=== PATIENT | male | born 1950 | race Caucasian/White ===

== ENCOUNTER 2018-06-04 16:38 | Inpatient (IN) | payer MEDICARE, OTHER ==
[~2018-06-04] VITALS: Ht 180.3 cm; Wt 92.5 kg
[~2018-06-04 16:38] MED LIST: ASPIR 8181 MG PO; CLOPIDOGREL75 MG PO; LEVOTHYROXINE100 MC1 PO; LEXAPRO10 MG PO; LISINOPRIL-HCT1 EAC1 PO; NIACIN500 M2 PO; RED YEAST RICE600 MG PO; TUMERIC PO
--- OUTSIDE RECORDS SUMMARY | 2018-06-04 16:41 | XMS REPORT ---
Author [facility] Address Unknown Phone Unavailable Care Team Providers Care Fur Blower Operator Name Role Phone Bautista MANUEL Unavailable Unavailable Problems This patient has no known problems. Allergies, Adverse Reactions, Alerts This patient has no known allergies or adverse reactions. Medications This patient has no known medications. Results Test Description Test Time Test Comments Text Results Atomic Results Result Comments CHEST 2 VIEWS [place] [address] Patient Name: KENA MARI MR #: [id number] : 1950 Age/Sex: 66/M Req #: [id number] Adm Physician: Ordered by: JAYLA MANUEL MD Report #: [id number] Location: OR Room/Bed: Procedure: [id number] DX/CHEST 2 VIEWS Exam Date: Exam Time: REPORT STATUS: Signed PROCEDURE: Frontal and lateral views of the chest. COMPARISON: None. INDICATIONS: PREOPERATIVE FOR MASS REMOVAL FINDINGS: Lines/tubes: None. Lungs: The lungs are well inflated and clear. There is no evidence of pneumonia or pulmonary edema. Pleura: There is no pleural effusion or pneumothorax. Heart and mediastinum: The heart and the mediastinum are normal. Atherosclerotic calcifications in the aorta. Bones: No acute bony abnormality. IMPRESSION: No acute cardiopulmonary disease. Dictated by: Cristiana Solomon M.D. on 11/09/2016 at 17:48 Electronically approved by: Cristiana Solomno M.D. on 11/09/2016 at 17:48 Dictated By: CRISTIANA SOLOMON MD 47 Transcribed By: FARHAD on 11/09/161747 COPY TO: JAYLA MANUEL MD
[2018-06-04] MEDS ORDERED: SODIUM CHLORIDE 0.9% 1000ML 1,000 ML ONE (17:53)
[2018-06-04 17:59] LABS: CLARITY,URINE SL CLOUDY (CLEAR); COLOR,URINE STRAW (YELLOW); LEUKOCYTE ESTERASE ,URINE NEGATIVE (NEGATIVE); NITRITE,URINE NEGATIVE (NEGATIVE); PROTEIN,URINE DIPSTICK NEGATIVE (NEGATIVE)
[2018-06-04 18:00] LABS: BILIRUBIN,URINE NEGATIVE (NEGATIVE); KETONES,URINE TRACE (NEGATIVE); URINE UROBILINOGEN 0.2 mg/dL (0.2 - 1)
[2018-06-04] MEDS ORDERED: VITAMIN B12-FO1 EACH PO (18:02)
[2018-06-04] MEDS ORDERED: MAGOX 400400 MG PO (18:02)
[2018-06-04] MEDS ORDERED: VITAMIN E400 UNI1 PO (18:02)
[2018-06-04] MEDS ORDERED: VITAMIN D1000 UNI1 PO (18:02)
[2018-06-04] MEDS ORDERED: GUMMI BEAR MUL1 EACH PO (18:02)
[2018-06-04] MEDS ORDERED: SODIUM CHLORIDE 0.9% 1000ML 1,000 ML IV STA (18:05)
[2018-06-04 18:13] LABS: INR 0.91; PROTHROMBIN TIME 12.7 seconds (11.9-14.5)
[2018-06-04 18:14] LABS: PARTIAL THROMBOPLASTIN TIME 24.7 seconds (23.8-35.5)
[2018-06-04 18:17] LABS: BASOPHILS # (AUTO) 0.1 (0.0-0.1); BASOPHILS % 0.5 % (0.0-1.0); EOSINOPHILS % 0.4 % (0.0-6.0); HEMATOCRIT 28.5 % (38.2-49.6); HEMOGLOBIN 9.6 g/dL (14.0-18.0); LYMPHOCYTES # (AUTO) 1.4 (1.0-3.2); LYMPHOCYTES % 12.2 % (18.0-39.1); MEAN CORPUSCULAR HEMOGLOBIN 29.9 pg (28-32); MEAN CORPUSCULAR HGB CONC 33.7 g/dL (31-35); MEAN CORPUSCULAR VOLUME 88.8 fL (81-99); MONOCYTES # (AUTO) 0.9 (0.2-0.8); MONOCYTES % 8.1 % (4.4-11.3); NEUTROPHILS # (AUTO) 8.7 (2.1-6.9); NEUTROPHILS % 78.3 % (38.7-80.0); PLATELET COUNT 216 x10e3/uL (140-360); RED BLOOD COUNT 3.21 x10e6/uL (4.3-5.7); RED CELL DISTRIBUTION WIDTH 12.7 % (11.7-14.4)
[2018-06-04 18:20] LABS: ALANINE AMINOTRANSFERASE 15 IU/L (0-55); ALBUMIN 3.7 g/dL (3.5-5.0); ALBUMIN/GLOBULIN RATIO 1.3 (0.8-2.0); ALKALINE PHOSPHATASE 72 IU/L (40-150); ANION GAP 11.5 mmol/L (8-16); BLOOD UREA NITROGEN 28 mg/dL (7-26); BUN/CREATININE RATIO 32 (6-25); CALCIUM 9.3 mg/dL (8.4-10.2); CARBON DIOXIDE 22 mmol/L (22-29); CHLORIDE 102 mmol/L (98-107); CREATININE, SERUM 0.88 mg/dL (0.72-1.25); EST GLOMERULAR FILTRATION RATE > 60 ML/MIN (60-); GLUCOSE 96 mg/dL (74-118); POTASSIUM 3.5 mmol/L (3.5-5.1); SODIUM 132 mmol/L (136-145)
[2018-06-04 18:31] LABS: BACTERIA,URINE MANY /HPF; WBC,URINE (MAN) 0-5 /HPF (0-5)
[2018-06-04] MEDS ORDERED: SODIUM CHLORIDE 0.9% 250ML 250 ML IV ONE ×2 (19:15→19:30)
--- NOTE | 2018-06-04 19:38 | NUR ---
PT AWAKE ALERT SKIN W/D RESP NONLAB. NAD NOTED. STOOD AT BEDSIDE AND USED URINAL WITHOUT DIFFICULTY. FAMILY AT BEDSIDE
--- NOTE | 2018-06-04 19:41 | Diagnostic Imaging Report ---
EXAM: CT Abdomen and Pelvis WITH contrast INDICATION: ^abd pain, GIB ^[id number] ^1830 COMPARISON: CT dated 01/11/2009 TECHNIQUE: Abdomen and pelvis were scanned utilizing a multidetector helical scanner from the lung base to the pubic symphysis after administration of IV contrast. Coronal and sagittal reformations were obtained. Dose modulation, iterative reconstruction, and/or weight based adjustment of the mA/kV was utilized to reduce the radiation dose to as low as reasonably achievable. Routine protocol was performed. Scan was performed when during portal venous phase. IV CONTRAST: 100 mL of Isovue-370 ORAL CONTRAST: Water COMPLICATIONS: None RADIATION DOSE: Total DLP: 663.36 mGy*cm Estimated effective dose: (DLP x 0.015 x size factor) mSv CTDIvol has been reviewed. It is below the limits set by the Radiation Protocol Committee (RPC). FINDINGS: LINES and TUBES: None. LOWER THORAX: Unremarkable HEPATOBILIARY: No focal hepatic lesions. No biliary ductal dilation. GALLBLADDER: No radio-opaque stones or sludge. No wall thickening. SPLEEN: No splenomegaly. PANCREAS: No focal masses or ductal dilatation. Pancreatic head calcification is more prominent from prior exam (series 2, image 30). ADRENALS: No adrenal nodules. Unchanged thickening of the left adrenal gland. KIDNEYS/URETERS: Kidneys enhance symmetrically. No hydronephrosis. No cystic or solid mass lesions. No stones. GI TRACT: No abnormal distention, wall thickening, or evidence of bowel obstruction. Colonic diverticulosis without evidence of diverticulitis. There is a 1.4 cm fat density lesion adjacent to the descending colon (series 2, image 63). Appendix is normal. PELVIC ORGANS/BLADDER: Prominent prostate gland. Bladder is unremarkable. LYMPH NODES: No lymphadenopathy. VESSELS: Narrowing of the proximal celiac axis. Otherwise, unremarkable. PERITONEUM / RETROPERITONEUM: No free air or fluid. BONES: L2 vertebral body hemangioma. L5-S1 degenerative changes. SOFT TISSUES: Small fat-containing left inguinal hernia. IMPRESSION: Fat density lesion adjacent to the descending colon, could represent Epiploic appendagitis or fat necrosis. Colonic diverticulosis without evidence of diverticulitis. Signed by: Dr. Fabio Harper MD on 06/04/2018 7:38 PM
[2018-06-04] MEDS ORDERED: IOPAMIDOL 370 MG/ML 200 ML INFUS..BTL INJ ONE (19:59)
[2018-06-04] MEDS ORDERED: SODIUM CHLORIDE 0.9% 50ML 50 ML ONE (19:59)
[2018-06-04] MEDS: SODIUM CHLORIDE 0.9% 1000ML 1,000 ML IV SCH (20:45)
[2018-06-04 21:18] VITALS: BP 104/59
--- NOTE | 2018-06-04 21:18 | NUR ---
patient received to room 289 via stretcher from the er. vss. pain to lower abd off and on. pain tolerable at this time per patient. blood continues to transfuse without difficulty. no signs of transfusion reaction noted. admit assessment/history obtained. son at the bedside. patient/son instructed to call for assistance when needed.
[2018-06-04 22:04] VITALS: BP 104/59
--- NOTE | 2018-06-04 23:00 | NUR ---
blood complete. vss. no transfusion reaction noted. patient denies pain at this time.
[2018-06-04 23:48] VITALS: BP 97/64
[2018-06-05 00:06] LABS: HEMATOCRIT 30.3 % (38.2-49.6); HEMOGLOBIN 10.3 g/dL (14.0-18.0)
[2018-06-05] MEDS ORDERED: PANTOPRAZOLE 40 MG 10ML VIAL IV STA (01:14)
[2018-06-05] MEDS: PANTOPRAZOL 40MG/SOD CHL 0.9% 50 ML IV SCH ×4 (01:30→17:13)
--- NOTE | 2018-06-05 01:30 | NUR ---
here to see patient. protonix drip initiated at 10cc/hr per orders. patient remains npo for egd tomorrow. patient made aware of this. consent to be signed in am.
--- NOTE | 2018-06-05 04:30 | NUR ---
Consent obtained from patient for egd today. consent placed on patients chart.
[2018-06-05 04:40] VITALS: BP 98/53
[2018-06-05 08:00] VITALS: BP 95/53
[2018-06-05 08:57] VITALS: BP 95/53
[2018-06-05] MEDS: SODIUM CHLORIDE 0.9% 1000ML 1,000 ML IV SCH ×2 (08:57→16:45)
--- NOTE | 2018-06-05 08:57 | NUR ---
Pt received resting in bed. Alert and oriented x4. Pt is NPO for EGD. Receiving Protonix & normal saline drip. Oriented to staff and surroundings. Encouraged to press call manzano if help needed. Emotional support given. Call manzano within reach. Will monitor
[2018-06-05] MEDS ORDERED: PANTOPRAZOLE 40 MG 10ML VIAL IV SCH (09:00)
[2018-06-05 11:59] LABS: HEMATOCRIT 27.6 % (38.2-49.6); HEMOGLOBIN 9.2 g/dL (14.0-18.0)
[2018-06-05 12:00] VITALS: BP 107/56
[2018-06-05] MEDS ORDERED: PEG (High)/E-LYTE SOLN 4,000 ML BTL PO ONE (16:00)
[2018-06-05 17:45] VITALS: BP 107/53
--- NOTE | 2018-06-05 18:15 | NUR ---
Pt refusing Protonix & NS drip for the moment because he's getting prepped for Colonoscopy. Emotional support given. Will endorse to next shift
[2018-06-05 19:15] LABS: HEMATOCRIT 28.6 % (38.2-49.6); HEMOGLOBIN 9.4 g/dL (14.0-18.0)
--- NOTE | 2018-06-05 19:15 | NUR ---
Patient visited in room during nursing rounds. Pt alert and oriented x4. No distress or discomfort noted. Pt aware scheduled for Colonoscopy tomorrow (06/06/18) by Dr. Norma Hernandez. Patient on bowel prep (golytely). IVF (NS at 100ml/hr) and Protonix drip at 10ml/hr. Call manzano within reach. Will monitor closely.
[2018-06-05] MEDS ORDERED: PROPOFOL IV EMULSION 10 MG/ML 50 ML VIAL ONE (19:29)
[2018-06-05] MEDS ORDERED: LIDOCAINE HCL 2% LOCAL INJ 5 ML SDV VIAL INJ ONE (19:29)
[2018-06-05 19:30] VITALS: BP 140/76
[2018-06-05] MEDS ORDERED: MIDAZOLAM HCL 2 MG/2 ML VIAL ONE (19:48)
[2018-06-05] MEDS ORDERED: FENTANYL CITRATE/PF 100MCG/2 ML INJ ONE (19:48)
--- NOTE | 2018-06-05 23:31 | Operative Report ---
DATE OF PROCEDURE: 06/05/2018 SURGEON: Lasha Hernandez MD PROCEDURE: EGD with biopsies. INDICATIONS FOR EGD: Anemia, history of melena. MEDICATIONS: The patient was done under MAC, please see anesthesiologist's note. PROCEDURE IN DETAIL: With the patient in left lateral decubitus position, a flexible fiberoptic Olympus gastroscope was introduced into the esophagus under direct visualization without any difficulty. There was some patchy erythema noted in distal esophagus. The scope was then advanced with ease into the stomach traversing a small sliding hiatal hernia. Mucosa overlying the antrum and the body revealed some patchy erythema, [id number] edema and biopsies were obtained and sent to stain for H pylori. The pylorus was of normal contour and shape. It was intubated with ease and the scope was advanced all the way to the second portion of the duodenum. The scope was then withdrawn slowly and mucosa overlying the proximal second portion and the duodenal bulb grossly appeared to be within normal limits. The scope was then withdrawn back into the stomach and retroflexed. The mucosa overlying the fundus and cardia appeared to be within normal limits. The scope was then straightened out and was subsequently withdrawn. The patient tolerated procedure well. IMPRESSION: 1. Distal esophagitis. 2. Small sliding hiatal hernia. 3. Gastritis, biopsied. Biopsies sent to stain for Helicobacter pylori. PLAN: Follow up histology. Continue Protonix 40 mg 1 p.o. q.a.m. before meals. Findings on EGD do not necessarily explain the patient's anemia or blood loss. We will proceed with colonoscopy in a.m. Lasha Hernandez MD [facility] [place] /[id number] cc: Mayito Armenta DO
[2018-06-06] VITALS (7 sets, daily range): BP systolic 106–115; BP diastolic 60–77
[2018-06-06 00:18] LABS: HEMATOCRIT 25.4 % (38.2-49.6); HEMOGLOBIN 8.5 g/dL (14.0-18.0)
[2018-06-06] MEDS: SODIUM CHLORIDE 0.9% 1000ML 1,000 ML IV SCH ×2 (00:18→08:17)
[2018-06-06] MEDS: PANTOPRAZOL 40MG/SOD CHL 0.9% 50 ML IV SCH ×4 (00:29→12:32)
--- NOTE | 2018-06-06 06:00 | NUR ---
Patient informed that his last bowel movement showed clear to pink-tinged liquid stool.
[2018-06-06 06:22] LABS: HEMATOCRIT 24.2 % (38.2-49.6); HEMOGLOBIN 8.1 g/dL (14.0-18.0)
[2018-06-06 06:34] LABS: ANION GAP 6.5 mmol/L (8-16); CARBON DIOXIDE 25 mmol/L (22-29); CHLORIDE 112 mmol/L (98-107); CREATININE, SERUM 0.69 mg/dL (0.72-1.25); EST GLOMERULAR FILTRATION RATE > 60 ML/MIN (60-); GLUCOSE 88 mg/dL (74-118); MAGNESIUM 1.7 MG/DL (1.3-2.1); POTASSIUM 3.5 mmol/L (3.5-5.1); SODIUM 140 mmol/L (136-145)
[2018-06-06 06:52] LABS: BLOOD UREA NITROGEN 9 mg/dL (7-26); BUN/CREATININE RATIO 13 (6-25)
--- NOTE | 2018-06-06 08:20 | NUR ---
Pt received resting in bed. Alert and oriented x4, scheduled for Colonoscopy. Emotional support given. Call manzano within reach. Will monitor
[2018-06-06] MEDS: ACETAMINOPHEN 325 MG TAB PO PRN (09:49)
[2018-06-06] MEDS ORDERED: CITRATE OF MAGNESIA 300ML BOTTLE PO NR (10:15)
[2018-06-06 12:30] LABS: HEMATOCRIT 25.3 % (38.2-49.6)
[2018-06-06 12:32] LABS: HEMOGLOBIN 8.4 g/dL (14.0-18.0)
--- NOTE | 2018-06-06 16:39 | Operative Report ---
DATE OF PROCEDURE: 06/06/2018 SURGEON: Lasha Hernandez MD PROCEDURE: Colonoscopy with biopsies and polypectomy. INDICATIONS FOR COLONOSCOPY: Rectal bleeding. MEDICATIONS: The patient was done under MAC, please see anesthesiologist's note. PROCEDURE IN DETAIL: With the patient in left lateral decubitus position, flexible fiberoptic Olympus colonoscope was inserted into the rectum with ease and advanced all the way to the cecum. Approximately 1.2 cm sessile polypoid lesion was noted in the cecum that was biopsied. Biopsies were sent for frozen section, which was positive for intramucosal carcinoma. The scope was then withdrawn slowly. One polyp was snared from the distal ascending colon. The transverse appeared to be within normal limits. Diverticular disease was noted in the distal descending and the sigmoid colon. One polyp was hot biopsied from the rectum. The scope was then retroflexed into the distal rectum and small internal hemorrhoids were noted, none of which was actively bleeding. The scope was then straightened out, it was subsequently withdrawn. The patient tolerated the procedure well. IMPRESSION: 1. Cecal polypoid mass approximately 1.2 cm. Frozen section positive for intramucosal adenocarcinoma. 2. Ascending colon polyp, snared. 3. Diverticulosis. 4. Rectal polyp, hot biopsied. 5. Internal hemorrhoids, none actively bleeding. PLAN: Follow up histology. CT scan of the abdomen and pelvis. General surgical consultation. Lasha Hernandez MD [facility] [place] /[id number] cc: MD Mayito Moss DO
--- NOTE | 2018-06-06 17:00 | NUR ---
Pt returned from Colonoscopy. Emotional support given. Call manzano within reach. Will monitor
[2018-06-06 18:45] LABS: HEMATOCRIT 25.3 % (38.2-49.6); HEMOGLOBIN 8.1 g/dL (14.0-18.0)
[2018-06-06] MEDS ORDERED: FENTANYL CITRATE/PF 100MCG/2 ML INJ ONE (19:02)
[2018-06-06] MEDS ORDERED: HYOSCYAMINE SULFATE 0.5 MG/ML INJ ONE (19:02)
[2018-06-06] MEDS ORDERED: LIDOCAINE HCL 2% LOCAL INJ 5 ML SDV VIAL INJ ONE (19:02)
[2018-06-06] MEDS ORDERED: MIDAZOLAM HCL 2 MG/2 ML VIAL ONE (19:02)
[2018-06-06] MEDS ORDERED: EPHEDRINE SULFATE INJ 50 MG/10 ML SYR ONE (19:02)
[2018-06-06] MEDS ORDERED: PROPOFOL IV EMULSION 10 MG/ML 50 ML VIAL ONE (19:02)
--- NOTE | 2018-06-06 19:10 | NUR ---
Patient visited in room during nursing rounds. Pt alert and oriented x4. No distress or discomfort noted. S/P Colonoscopy with biopsy today by Dr. Norma Hernandez. Patient mentioned last bowel movement today and stool appear clear to pink-tinged. Pt on IVF (NS at 100ml/hr) and Protonix drip at 10ml/hr. Call manzano within reach. Will monitor closely.
--- NOTE | 2018-06-06 19:20 | NUR ---
Pt complaining regarding saline lock position. Attempted twice to insert new saline lock without success. Pt does not want staff to retry for IV. Right AC in place. Endorsed to next shift.
[2018-06-07] VITALS (8 sets, daily range): BP systolic 91–143; BP diastolic 50–88
[2018-06-07 00:41] LABS: HEMATOCRIT 25.3 % (38.2-49.6); HEMOGLOBIN 8.5 g/dL (14.0-18.0)
[2018-06-07] MEDS: PANTOPRAZOL 40MG/SOD CHL 0.9% 50 ML IV SCH ×5 (02:10→23:15)
[2018-06-07] MEDS: SODIUM CHLORIDE 0.9% 1000ML 1,000 ML IV SCH ×3 (02:10→13:52)
[2018-06-07] MEDS: ACETAMINOPHEN 325 MG TAB PO PRN ×3 (02:15→09:00)
[2018-06-07 06:19] LABS: HEMATOCRIT 23.3 % (38.2-49.6); HEMOGLOBIN 7.7 g/dL (14.0-18.0)
--- NOTE | 2018-06-07 06:40 | NUR ---
Attempted to call Dr. Brendon Moon to inform about consult but no answer from MD. Will pass on to dayshift RN to follow-up on this consult.
--- NOTE | 2018-06-07 08:10 | NUR ---
PATIENT IS AWAKE, ALERT, AND IN STABLE CONDITION WITH NO S/S OF RESPIRATORY DISTRESS. PATIENT C/O HEAD PAIN 05/12 AND RECENTLY RECEIVED TYLENOL. IV FLUIDS INFUSING. CALL LIGHT IS WITHIN REACH, PATIENT INSTRUCTED TO CALL FOR ASSISTANCE NEEDED.
[2018-06-07] MEDS ORDERED: SODIUM CHLORIDE 0.9% 250ML 250 ML IV ONE (09:45)
[2018-06-07 12:03] LABS: HEMATOCRIT 24.1 % (38.2-49.6); HEMOGLOBIN 8.1 g/dL (14.0-18.0)
[2018-06-07] MEDS ORDERED: SODIUM CHLORIDE 0.9% 250ML 250 ML ONE ×2 (13:22→19:48)
[2018-06-07] MEDS: FUROSEMIDE INJ 10 MG/ML 2 ML VIAL IV PRN ×2 (17:14→23:24)
--- NOTE | 2018-06-07 19:15 | NUR ---
patient received awake, alert, lying quietly in bed. no c/o pain noted. ivf/protonix drip continue to infuse without difficulty. pm assessment complete. patient instructed to call for assistance when needed.
--- NOTE | 2018-06-07 19:45 | NUR ---
Blood initiated and is infusing without difficulty at this time. unit #[id number]. close monitoring continues.
[2018-06-07] MEDS: MAGNESIUM HYDROXIDE 30 ML UDC PO SCH (20:46)
--- NOTE | 2018-06-07 22:45 | NUR ---
Blood transfusion complete. no transfusion reaction noted. vss. no c/o pain noted.
--- NOTE | 2018-06-07 23:24 | NUR ---
lasix 20 mg ivp given per orders post blood transfusion.
[2018-06-08 05:06] VITALS: BP 113/68
[2018-06-08 06:20] LABS: HEMATOCRIT 31.3 % (38.2-49.6); HEMOGLOBIN 10.5 g/dL (14.0-18.0)
[2018-06-08] MEDS: SODIUM CHLORIDE 0.9% 1000ML 1,000 ML IV SCH (07:00)
--- NOTE | 2018-06-08 07:15 | NUR ---
PATIENT IS IN STABLE CONDITION WITH NO S/S OF RESPIRATORY DISTRESS. NO PAIN VOICED. IV FLUIDS INFUSING. CALL LIGHT IS WITHIN REACH-PATIENT INSTRUCTED TO CALL FOR ASSISTANCE NEEDED.
[2018-06-08 08:00] VITALS: BP 105/56
[2018-06-08] MEDS: PANTOPRAZOL 40MG/SOD CHL 0.9% 50 ML IV SCH (08:47)
[2018-06-08] MEDS: ASPIRIN 81 MG CHEW TAB PO SCH (11:34)
[2018-06-08] MEDS: ASPIRIN 325 MG TAB PO ONE ×2 (11:34→12:00)
--- NOTE | 2018-06-08 11:59 | Consultation ---
DATE OF CONSULTATION: REASON FOR CONSULT: CAD. HISTORY OF PRESENT ILLNESS: Mr. Rivera is a 67-year-old gentleman with past medical history as listed below. He was initially admitted with dark tarry stools on the 04 of June. He went on to have colonoscopy, which revealed cancer of his cecum and he is scheduled to undergo hemicolectomy. The patient has a history of CAD and has been taking Plavix. His last stent was in 2008. He denies any chest pain, shortness of breath, or palpitations. He follows up with Dr. Celso Conde. He reportedly had his first stent in 1999 and then in 2000 and the third one in 2008. REVIEW OF SYMPTOMS: CONSTITUTIONAL: He has some fatigue and weakness. HEENT: No headache, blurring of vision, seizure, or syncope. CARDIOVASCULAR: No chest pain, dyspnea, orthopnea, or PND. RESPIRATORY: No cough, fever, or expectoration. GI: He has some abdominal pain. No vomiting or diarrhea. He had dark tarry stools. : No dysuria, frequency, or incontinence. ALLERGIES: NO KNOWN DRUG ALLERGIES. MEDICATIONS: See list. PAST MEDICAL HISTORY: 1. History of CAD, reportedly flat line in 1999 and had a stent and then he had another stent in 2000 and another stent in 2008, none after that. 2. History of hypertension. SOCIAL HISTORY: He quit smoking in 2007. FAMILY HISTORY: Noncontributory. PHYSICAL EXAMINATION: GENERAL: Well-built, well-nourished gentleman, alert, oriented, not in obvious distress. VITAL SIGNS: Heart rate 76, blood pressure 127/58, and respiratory rate 18. HEENT: Atraumatic. NECK: No JVD, bruit, thyromegaly, or lymphadenopathy. CARDIOVASCULAR: First and second heart sounds heard. No murmurs, rubs, or gallops appreciated. CHEST: Decreased air entry at the bases. No adventitious sounds appreciated. ABDOMEN: Soft, nontender. EXTREMITIES: No edema. LABS: Sodium is 140, potassium 3.5, chloride is 112, bicarb is 25, BUN is 9, creatinine 0.6. Hemoglobin is 8.1, hematocrit 24.1, platelets are 216, and white count . No EKG available. IMPRESSIONS: 1. Carcinoma of colon. 2. Coronary artery disease, history of stent placement. 3. History of hypertension. 4. Anemia. PLAN: 1. Colonoscopy showed cancer of his cecum, he is scheduled to undergo hemicolectomy. 2. The patient is on Plavix. His last stent was in 2008. Okay to stop Plavix prior to surgery and can restart after surgery. 3. Get echocardiogram to assess LV function and valvular function. 4. We will add statin, baby aspirin, and beta-blockers to his regimen. 5. Further cardiac workup depending on clinical course. 6. Discussed my impression and plan of management with the patient and he understands. As always, I appreciate and thank you very much for referral. MD CATHERINE Richard/JASE /[id number]
[2018-06-08 12:27] LABS: HEMATOCRIT 36.3 % (38.2-49.6); HEMOGLOBIN 12.3 g/dL (14.0-18.0)
[2018-06-08 12:30] VITALS: BP 111/53
[2018-06-08] MEDS: LEVOTHYROXINE SODIUM 125 MCG TAB PO SCH (16:15)
[2018-06-08] MEDS: METOPROLOL TARTRATE 25 MG TAB PO SCH (16:15)
[2018-06-08 16:29] VITALS: BP 125/67
--- NOTE | 2018-06-08 18:49 | NUR ---
PATIENT IS IN STABLE CONDITION WITH NO S/S OF RESPIRATORY DISTRESS. NO PAIN VOICED. SON PRESENT IN ROOM. CALL LIGHT IS WITHIN REACH, PATIENT INSTRUCTED TO CALL FOR ASSISTANCE NEEDED. BEDSIDE REPORT GIVEN TO ONCOMING NURSE.
[2018-06-08 19:00] VITALS: BP 116/60
--- NOTE | 2018-06-08 19:00 | NUR ---
patient received awake, alert, lying quietly in bed. no c/o pain noted. pm assessment complete. son at the bedside. patient/son instructed to call for assistance when needed.
[2018-06-08 20:00] VITALS: BP 116/60
[2018-06-08] MEDS: MAGNESIUM HYDROXIDE 30 ML UDC PO SCH (21:00)
[2018-06-09] VITALS (7 sets, daily range): BP systolic 89–117; BP diastolic 49–63
[2018-06-09] MEDS: LEVOTHYROXINE SODIUM 125 MCG TAB PO SCH (05:30)
[2018-06-09 06:53] LABS: BASOPHILS % 0.7 % (0.0-1.0); EOSINOPHILS # (AUTO) 0.3 (0.0-0.4); EOSINOPHILS % 4.4 % (0.0-6.0); HEMATOCRIT 31.5 % (38.2-49.6); HEMOGLOBIN 10.5 g/dL (14.0-18.0); LYMPHOCYTES # (AUTO) 0.8 (1.0-3.2); LYMPHOCYTES % 14.1 % (18.0-39.1); MEAN CORPUSCULAR HEMOGLOBIN 29.2 pg (28-32); MEAN CORPUSCULAR HGB CONC 33.3 g/dL (31-35); MEAN CORPUSCULAR VOLUME 87.7 fL (81-99); MONOCYTES # (AUTO) 0.7 (0.2-0.8); MONOCYTES % 12.6 % (4.4-11.3); NEUTROPHILS % 67.7 % (38.7-80.0); PLATELET COUNT 199 x10e3/uL (140-360); RED BLOOD COUNT 3.59 x10e6/uL (4.3-5.7); RED CELL DISTRIBUTION WIDTH 14.4 % (11.7-14.4)
[2018-06-09 08:25] LABS: ALANINE AMINOTRANSFERASE 15 IU/L (0-55); ALBUMIN 3.1 g/dL (3.5-5.0); ALBUMIN/GLOBULIN RATIO 1.2 (0.8-2.0); ALKALINE PHOSPHATASE 66 IU/L (40-150); ANION GAP 9.5 mmol/L (8-16); BLOOD UREA NITROGEN 5 mg/dL (7-26); BUN/CREATININE RATIO 6 (6-25); CALCIUM 8.4 mg/dL (8.4-10.2); CARBON DIOXIDE 25 mmol/L (22-29); CHLORIDE 109 mmol/L (98-107); CREATININE, SERUM 0.82 mg/dL (0.72-1.25); EST GLOMERULAR FILTRATION RATE > 60 ML/MIN (60-); GLUCOSE 86 mg/dL (74-118); POTASSIUM 3.5 mmol/L (3.5-5.1); SODIUM 140 mmol/L (136-145)
[2018-06-09] MEDS: ASPIRIN 81 MG CHEW TAB PO SCH (09:16)
[2018-06-09] MEDS: PANTOPRAZOLE SOD 40 MG TABEC PO SCH (09:16)
[2018-06-09] MEDS: METOPROLOL TARTRATE 25 MG TAB PO SCH ×2 (09:17→16:55)
[2018-06-09] MEDS ORDERED: POTASSIUM CHLORIDE 10MEQ EA PO NR (13:45)
[2018-06-09] MEDS: NEOMYCIN SULFATE 500 MG TAB PO SCH ×3 (15:02→23:00)
[2018-06-09] MEDS: ERYTHROMYCIN 250 MG TAB PO SCH ×3 (15:02→23:00)
--- NOTE | 2018-06-09 19:42 | NUR ---
PATIENT IS IN STABLE CONDITION WITH NO S/S OF RESPIRATORY DISTRESS. NO PAIN VOICED. PATIENT IS AWARE HE WILL BE NPO AT MIDNIGHT. CALL LIGHT IS WITHIN REACH, PATIENT INSTRUCTED TO CALL FOR ASSISTANCE NEEDED. BEDSIDE REPORT GIVEN TO ONCOMING NURSE.
--- NOTE | 2018-06-09 20:23 | NUR ---
RECEIVE DPT IN BED AOX3 .RESPIRATIONS ARE EVEN AND UNLABORED .DENIES PAIN .CALL LIGHT WITH IN REACH .CONTINUE TO MONITOR
[2018-06-09] MEDS: MAGNESIUM HYDROXIDE 30 ML UDC PO SCH (21:38)
[2018-06-10] VITALS (8 sets, daily range): BP systolic 96–116; BP diastolic 54–62
[2018-06-10] MEDS: LEVOTHYROXINE SODIUM 125 MCG TAB PO SCH (05:25)
--- NOTE | 2018-06-10 06:16 | NUR ---
PT IS NPO FOR THR PROCEDURE DENIES PAIN CALL LIGHT WITH IN REACH.CONTINUE TO STEPHANIE Amador
[2018-06-10 06:45] LABS: BASOPHILS % 0.5 % (0.0-1.0); EOSINOPHILS # (AUTO) 0.2 (0.0-0.4); EOSINOPHILS % 3.3 % (0.0-6.0); HEMATOCRIT 32.8 % (38.2-49.6); HEMOGLOBIN 10.9 g/dL (14.0-18.0); LYMPHOCYTES # (AUTO) 0.9 (1.0-3.2); LYMPHOCYTES % 14.1 % (18.0-39.1); MEAN CORPUSCULAR HEMOGLOBIN 29.2 pg (28-32); MEAN CORPUSCULAR HGB CONC 33.2 g/dL (31-35); MEAN CORPUSCULAR VOLUME 87.9 fL (81-99); MONOCYTES # (AUTO) 0.9 (0.2-0.8); MONOCYTES % 14.2 % (4.4-11.3); NEUTROPHILS # (AUTO) 4.1 (2.1-6.9); NEUTROPHILS % 67.6 % (38.7-80.0); PLATELET COUNT 229 x10e3/uL (140-360); RED BLOOD COUNT 3.73 x10e6/uL (4.3-5.7); RED CELL DISTRIBUTION WIDTH 14.2 % (11.7-14.4)
[2018-06-10 06:52] LABS: ANION GAP 10.4 mmol/L (8-16); BLOOD UREA NITROGEN 5 mg/dL (7-26); BUN/CREATININE RATIO 5 (6-25); CALCIUM 8.7 mg/dL (8.4-10.2); CARBON DIOXIDE 26 mmol/L (22-29); CHLORIDE 110 mmol/L (98-107); CREATININE, SERUM 0.93 mg/dL (0.72-1.25); EST GLOMERULAR FILTRATION RATE > 60 ML/MIN (60-); GLUCOSE 93 mg/dL (74-118); POTASSIUM 4.4 mmol/L (3.5-5.1); SODIUM 142 mmol/L (136-145)
--- NOTE | 2018-06-10 07:23 | NUR ---
BEDSIDE REPORT GIVEN TO THE ONCOMING NURSE
[2018-06-10] MEDS: PANTOPRAZOLE SOD 40 MG TABEC PO SCH (07:30)
[2018-06-10] MEDS: ASPIRIN 81 MG CHEW TAB PO SCH (09:00)
[2018-06-10] MEDS: METOPROLOL TARTRATE 25 MG TAB PO SCH (09:00)
[2018-06-10] MEDS ORDERED: ACETAMINOPHEN 1000 MG/100 ML 100 ML IV ONE (13:35)
[2018-06-10] MEDS ORDERED: NALOXONE HCL INJ 0.4 MG/ML AMP IV PRN (14:30)
[2018-06-10] MEDS ORDERED: ACETAMINOPHEN 1000 MG/100 ML IV PRN (14:30)
[2018-06-10] MEDS ORDERED: ONDANSETRON HCL INJ 2MG/ML 2ML 2 MG/ML VIAL IV PRN (14:30)
[2018-06-10] MEDS ORDERED: HYDROMORPHONE 0.2MG/ML-SOD CHL 30ML PCA SYRINGE IV ONE (14:44)
[2018-06-10] MEDS: HYDROMORPHONE 0.2MG/ML-SOD CHL 30ML PCA SYRINGE IV PRN (14:45)
--- NOTE | 2018-06-10 15:06 | NUR ---
I was notified from Administrative Manager that pt will be moving to room 112 after surgery. Family notified of move.
--- NOTE | 2018-06-10 15:07 | Operative Report ---
DATE OF PROCEDURE: 06/10/2018 SURGEON: Conor Moon MD PREOPERATIVE DIAGNOSIS: Carcinoma of the cecum. POSTOPERATIVE DIAGNOSIS: Carcinoma of the cecum. OPERATIONS PERFORMED: Exploratory laparotomy, right hemicolectomy. CARDIOLOGY TECHNOLOGIST: 1. Dr. Narinder Moon. 2. MURTAZA Bright. COMPLICATIONS: None. ESTIMATED BLOOD LOSS: 50 mL. DESCRIPTION OF PROCEDURE: With the patient lying in bed in the supine position under good general anesthesia, the abdomen was prepped with Betadine solution and draped in the usual manner. A midline incision was made, it was carried down through the subcutaneous tissue down to the midline fascia. The midline fascia was opened and the abdomen was entered. Upon entering the abdominal cavity, exploration revealed the fact that there was a lesion in the cecal pouch consistent with known carcinoma of the cecum. The liver was free of any disease. There was no other palpable abnormality throughout the abdominal cavity. The right colon was then mobilized of the right lateral gutter. The duodenum and right ureter were identified and preserved. The lesser sac was then entered at the level of the midtransverse colon and the colon was from the stomach. The terminal ileum was then divided with an application of a GREGORIO-75 stapler and similarly the midtransverse colon was divided with an application of a GREGORIO-75 stapler. Mesentery of the colon was then scored and divided using the EnSeal device and the specimen was sent for pathological examination. The whole area was thoroughly irrigated. Perfect hemostasis was ascertained. The anastomosis was then completed with another application of a GREGORIO-75 stapler bringing the terminal ileum to the transverse colon and the remaining opening was closed with a TA-60 stapler. Gloves and instruments were then changed. The anastomosis was reinforced with interrupted sutures of 3-0 silk and the mesenteric rent was closed with a running suture of 2-0 Vicryl. The abdomen was then copiously irrigated. Perfect hemostasis was ascertained and the wound was then closed in layers. The peritoneum was closed with a running suture of #1 Vicryl. The midline fascia was closed with a running suture of #1 Vicryl and the skin was closed with clips. A dressing was applied. The sponge, lap, and needle count was correct. The patient tolerated the procedure well and returned to the recovery room in stable condition. MD CHINO Moss/JASE /[id number]
--- NOTE | 2018-06-10 16:49 | NUR ---
Received patient from PACU. Accompanied by son. Cherise3 to time, person, place. Respirations even and unlabored. On ENTRY LEVEL MANAGEMENT pump. Left nare NG tube connected to low intermittent suction as ordered. Abdomen dressing clean, dry, and intact with abdominal binder. Placed Walker hose and SCD's as ordered. Instructed to use call light for assistance. Will continue to monitor.
[2018-06-10] MEDS ORDERED: HYDRALAZINE HCL 20 MG/ML VIAL IV PRN (17:30)
[2018-06-10] MEDS ORDERED: METOPROLOL TARTRATE INJ 1 MG/ML VIAL IV PRN ×2 (17:30→18:00)
[2018-06-10] MEDS ORDERED: ONDANSETRON HCL INJ 2MG/ML 2ML 2 MG/ML VIAL ONE (17:53)
[2018-06-10] MEDS ORDERED: ROCURONIUM BROMIDE 10 MG/ML 5ML VIAL ONE (17:53)
[2018-06-10] MEDS ORDERED: LIDOCAINE HCL 2% LOCAL INJ 5 ML SDV VIAL INJ ONE (17:53)
[2018-06-10] MEDS ORDERED: PROPOFOL IV EMULSION 10 MG/ML 20 ML VIAL ONE (17:53)
[2018-06-10] MEDS ORDERED: EPHEDRINE SULFATE INJ 50 MG/10 ML SYR ONE (17:53)
[2018-06-10] MEDS ORDERED: CEFOXITIN SOD 1 GM VIAL ONE (17:53)
[2018-06-10] MEDS ORDERED: GLYCOPYRROLATE INJ 1MG/ 5 ML SYR ONE (17:53)
[2018-06-10] MEDS ORDERED: NEOSTIGMINE 5 MG/5ML SYR ONE (17:53)
[2018-06-10] MEDS ORDERED: SEVOFLURANE INHAL SOLN 250 ML PEN BTL ONE (17:53)
[2018-06-10] MEDS: SODIUM CHLORIDE 0.9% 250ML IRRIG IR SCH ×2 (18:00→22:30)
[2018-06-10] MEDS: SODIUM CHLORIDE 0.9% 1000ML 1,000 ML IV SCH (18:00)
[2018-06-10] MEDS: CEFOXITIN 1GM/ D5W 50ML 50 ML IV SCH ×2 (18:11→23:55)
[2018-06-10] MEDS ORDERED: FENTANYL CITRATE/PF 100MCG/2 ML INJ ONE (18:59)
[2018-06-10] MEDS ORDERED: MIDAZOLAM HCL 2 MG/2 ML VIAL ONE (18:59)
[2018-06-10] MEDS ORDERED: MORPHINE SULFATE INJ 10 MG/ML ONE (18:59)
[2018-06-11] VITALS (9 sets, daily range): BP systolic 113–137; BP diastolic 61–71
[2018-06-11] MEDS: SODIUM CHLORIDE 0.9% 1000ML 1,000 ML IV SCH ×3 (00:23→20:23)
[2018-06-11] MEDS: HYDROMORPHONE 0.2MG/ML-SOD CHL 30ML PCA SYRINGE IV PRN ×2 (01:07→13:21)
[2018-06-11] MEDS: SODIUM CHLORIDE 0.9% 250ML IRRIG IR SCH ×5 (02:30→22:30)
[2018-06-11 07:06] LABS: BASOPHILS % 0.2 % (0.0-1.0); EOSINOPHILS % 0.3 % (0.0-6.0); HEMATOCRIT 32.1 % (38.2-49.6); HEMOGLOBIN 10.6 g/dL (14.0-18.0); LYMPHOCYTES # (AUTO) 0.6 (1.0-3.2); LYMPHOCYTES % 6.1 % (18.0-39.1); MEAN CORPUSCULAR HEMOGLOBIN 29.9 pg (28-32); MEAN CORPUSCULAR VOLUME 90.7 fL (81-99); MONOCYTES # (AUTO) 0.9 (0.2-0.8); MONOCYTES % 8.8 % (4.4-11.3); NEUTROPHILS # (AUTO) 8.6 (2.1-6.9); NEUTROPHILS % 84.2 % (38.7-80.0); PLATELET COUNT 219 x10e3/uL (140-360); RED BLOOD COUNT 3.54 x10e6/uL (4.3-5.7)
[2018-06-11 07:28] LABS: ANION GAP 9.2 mmol/L (8-16); BLOOD UREA NITROGEN 6 mg/dL (7-26); BUN/CREATININE RATIO 8 (6-25); CALCIUM 8.2 mg/dL (8.4-10.2); CARBON DIOXIDE 26 mmol/L (22-29); CHLORIDE 104 mmol/L (98-107); CREATININE, SERUM 0.77 mg/dL (0.72-1.25); EST GLOMERULAR FILTRATION RATE > 60 ML/MIN (60-); GLUCOSE 95 mg/dL (74-118); POTASSIUM 4.2 mmol/L (3.5-5.1); SODIUM 135 mmol/L (136-145)
[2018-06-11] MEDS: PANTOPRAZOLE 40 MG 10ML VIAL IV SCH ×2 (13:26→15:50)
--- NOTE | 2018-06-11 16:49 | NUR ---
Nutrition Screen Note RD Recommendation for Physician: - ADAT to goal of GI Soft diet Plan of Care: RD following, monitoring for tolerance and adequacy Nutrition reason for involvement: LOS Primary Diagnose(s): GIB, cancer of cecum PMH: CAD with CABG, HTN, diverticulosis per pt Ht: 71 in Wt: 216.13 lb BMI: 30.1 kg/m2 IBW: [address] Assessment: (06/11) 67 YOM admitted for GIB with recent dx of cancer to the cecum. Pt is POD#1 for R hemicolectomy with NGT in place to LIWS and NPO as of yesterday. Noted 600 ml of dark NGT output at time of visit. 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 Pt reports UBW of 203#, no wt loss noted. Pt denies any N/V/C/D prior to surgery, pt complaining of post operative pain. LBM 4/8 prior to surgery. POC reviewed with pt and son. Chart reviewed. Labs and meds reviewed. Will monitor and continue to follow. Current Diet: NPO x day 1 Malnutrition Evaluation (06/11/18) The patient does not meet criteria for a specified degree of malnutrition at this time. Will re-evaluate at follow-up as appropriate. Diet Education Needs Assessment: Diet education not indicated, pt on transitionary diet. Nutrition Care Level: Low Signed: Fina Ontiveros RD, LD, [facility]
[2018-06-12] VITALS (8 sets, daily range): BP systolic 110–167; BP diastolic 58–74
[2018-06-12] MEDS ORDERED: CEPACOL SORE THROAT LOZENGES PO PRN (00:45)
--- NOTE | 2018-06-12 01:21 | NUR ---
TEMP RECHECKED 99.5 F. NO CHILLS NOTED.
[2018-06-12] MEDS: SODIUM CHLORIDE 0.9% 250ML IRRIG IR SCH ×6 (02:30→22:30)
--- NOTE | 2018-06-12 04:45 | NUR ---
PCS DILAUDID NOT AVAILABLE. DR Beau MANUEL MADE NEW ORDER.
[2018-06-12] MEDS ORDERED: HYDROMORPHONE 1MG/1ML INJ IV PRN (05:30)
[2018-06-12] MEDS: SODIUM CHLORIDE 0.9% 1000ML 1,000 ML IV SCH ×2 (06:23→18:27)
[2018-06-12 06:45] LABS: BASOPHILS % 0.2 % (0.0-1.0); EOSINOPHILS % 0.2 % (0.0-6.0); HEMATOCRIT 32.5 % (38.2-49.6); HEMOGLOBIN 10.8 g/dL (14.0-18.0); LYMPHOCYTES # (AUTO) 0.5 (1.0-3.2); LYMPHOCYTES % 3.9 % (18.0-39.1); MEAN CORPUSCULAR HEMOGLOBIN 29.8 pg (28-32); MEAN CORPUSCULAR HGB CONC 33.2 g/dL (31-35); MEAN CORPUSCULAR VOLUME 89.8 fL (81-99); MONOCYTES # (AUTO) 1.1 (0.2-0.8); MONOCYTES % 8.7 % (4.4-11.3); NEUTROPHILS # (AUTO) 10.4 (2.1-6.9); NEUTROPHILS % 86.5 % (38.7-80.0); PLATELET COUNT 242 x10e3/uL (140-360); RED BLOOD COUNT 3.62 x10e6/uL (4.3-5.7); RED CELL DISTRIBUTION WIDTH 13.8 % (11.7-14.4)
[2018-06-12 07:07] LABS: BLOOD UREA NITROGEN 7 mg/dL (7-26); BUN/CREATININE RATIO 10 (6-25); CALCIUM 8.6 mg/dL (8.4-10.2); CARBON DIOXIDE 25 mmol/L (22-29); CHLORIDE 100 mmol/L (98-107); CREATININE, SERUM 0.73 mg/dL (0.72-1.25); EST GLOMERULAR FILTRATION RATE > 60 ML/MIN (60-); GLUCOSE 90 mg/dL (74-118); SODIUM 134 mmol/L (136-145)
--- NOTE | 2018-06-12 07:28 | NUR ---
RECEIVED PATIENT AWAKE RESTING IN BED, NO SIGNS OF DISTRESS. CALL LIGHT IN REACH, WILL CONTINUE TO MONITOR.
--- NOTE | 2018-06-12 08:42 | NUR ---
REMOVED PATIENTS GRAVES. CATHETER TIP INTACT ON REMOVAL. PATIENT DUE TO VOID.
--- NOTE | 2018-06-12 10:00 | NUR ---
PATIENT A/O X3, EVEN RESPIRATIONS ON RA. BOWEL SOUNDS ACTIVE, SKIN INTACT, NO EDEMA. ABDOMINAL DRESSING DRY/INTACT, ABD BINDER IN PLACE. NGT TO RIGHT NARE SET TO LCS. RIGHT HAND 18 GAUGE IV WITH NS @ 100 CC/HR. PATIENT NPO AT THIS TIME.
[2018-06-12] MEDS ORDERED: BISACODYL 10 MG SUPP PR ONE (10:30)
[2018-06-12] MEDS ORDERED: HYDROMORPHONE 2MG/ML 2 MG/ML ML IV PRN (10:45)
--- NOTE | 2018-06-12 12:21 | NUR ---
PRN HYDRALAZINE GIVEN FOR BP 167/72.
--- NOTE | 2018-06-12 14:33 | NUR ---
PATIENT HAS VOIDED SINCE GRAVES REMOVAL.
--- NOTE | 2018-06-12 17:44 | NUR ---
PAGED DR. MANUEL REGARDING NGT COMING OUT. WAITING FOR CALL BACK.
--- NOTE | 2018-06-12 17:48 | NUR ---
SPOKE WITH DR. MANUEL REGARDING NGT COMING OUT. DR. MANUEL SAID OK TO LEAVE NGT OUT.
[2018-06-12] MEDS: HYDROMORPHONE 0.2MG/ML-SOD CHL 30ML PCA SYRINGE IV PRN ×2 (19:20→19:56)
--- NOTE | 2018-06-12 20:10 | NUR ---
DR MANUEL IN UNIT NOTIFIED THAT PT IS C/O HEADACHE,DR MANUEL STATED THAT HE WILL GO SEE THE PT.
[2018-06-12] MEDS ORDERED: HYDROMORPHONE 0.2MG/ML-SOD CHL 30ML PCA SYRINGE IV PRN (20:30)
[2018-06-12] MEDS: BISACODYL 10 MG SUPP PR SCH (20:30)
--- NOTE | 2018-06-12 20:30 | NUR ---
IV TO LEFT HAND UNABLE TO FLUSH,CATH TIP NOTED INTACT UPON REMOVAL.PRESSURE DRESSING APPLIED.WILL CONT TO MONITOR.
[2018-06-13] VITALS (8 sets, daily range): BP systolic 123–139; BP diastolic 61–75
[2018-06-13] MEDS: SODIUM CHLORIDE 0.9% 1000ML 1,000 ML IV SCH ×3 (02:23→15:09)
[2018-06-13] MEDS: SODIUM CHLORIDE 0.9% 250ML IRRIG IR SCH ×4 (02:30→12:56)
[2018-06-13 06:56] LABS: BASOPHILS % 0.3 % (0.0-1.0); EOSINOPHILS # (AUTO) 0.1 (0.0-0.4); EOSINOPHILS % 1.5 % (0.0-6.0); HEMATOCRIT 31.2 % (38.2-49.6); HEMOGLOBIN 10.3 g/dL (14.0-18.0); LYMPHOCYTES # (AUTO) 0.6 (1.0-3.2); MEAN CORPUSCULAR VOLUME 87.9 fL (81-99); MONOCYTES # (AUTO) 0.8 (0.2-0.8); MONOCYTES % 8.3 % (4.4-11.3); NEUTROPHILS % 83.4 % (38.7-80.0); PLATELET COUNT 243 x10e3/uL (140-360); RED BLOOD COUNT 3.55 x10e6/uL (4.3-5.7); RED CELL DISTRIBUTION WIDTH 13.3 % (11.7-14.4)
--- NOTE | 2018-06-13 07:09 | NUR ---
REPORT GIVEN TO ONCOMING NURSE.WALKING ROUNDS MADE.PT RESTING IN BED WITH NO S/S OF DISTRESS.
[2018-06-13 07:19] LABS: ANION GAP 13.1 mmol/L (8-16); BLOOD UREA NITROGEN 7 mg/dL (7-26); BUN/CREATININE RATIO 10 (6-25); CALCIUM 8.6 mg/dL (8.4-10.2); CARBON DIOXIDE 24 mmol/L (22-29); CHLORIDE 104 mmol/L (98-107); EST GLOMERULAR FILTRATION RATE > 60 ML/MIN (60-); GLUCOSE 81 mg/dL (74-118); POTASSIUM 4.1 mmol/L (3.5-5.1); SODIUM 137 mmol/L (136-145)
[2018-06-13] MEDS: PANTOPRAZOLE SODIUM 40 MG SUSPDR.PKT NG SCH (07:30)
--- NOTE | 2018-06-13 07:35 | NUR ---
RECEIVED PATIENT IN REPORT THIS AM. PATIENT AWAKE AT THIS TIME RESTING IN RECLINER. NO SIGNS OF DISTRESS NOTED. CALL LIGHT IN REACH WILL CONTINUE TO MONITOR.
[2018-06-13] MEDS: BISACODYL 10 MG SUPP PR SCH ×2 (08:46→20:25)
--- NOTE | 2018-06-13 09:30 | NUR ---
PATIENT A/O X3, EVEN RESPIRATIONS ON RA. PATIENT NPO AT THIS TIME. PATIENT AMBULATORY, STEADY GAIT. RIGHT HAND 18 GAUGE WITH NS @ 100 CC/HR. ABDOMINAL DRESSING INTACT WITH ABD BINDER IN PLACE. SCDS BILATERALLY. CALL LIGHT IN REACH WILL CONTINUE TO MONITOR.
--- NOTE | 2018-06-13 10:43 | NUR ---
PHYSICIAN AT BEDSIDE. GAVE TEST RESULTS TO PATIENT. NURSE AND PHYSICIAN EDUCATED PATIENT ABOUT THE IMPORTANCE OF AMBULATING. PATIENT VERBALIZED UNDERSTANDING.
[2018-06-13] MEDS ORDERED: BISACODYL 10 MG SUPP PR NR (10:45)
[2018-06-13] MEDS ORDERED: HYDROMORPHONE 2MG/ML 2 MG/ML ML IV PRN (14:15)
--- NOTE | 2018-06-13 14:41 | NUR ---
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
--- NOTE | 2018-06-13 16:10 | NUR ---
CASE MANAGEMENT ASSESSMENT Skylights Assembler to bedside to discuss plan of care with patient/family. CM/SW role and care transitions discussed. Anticipated discharge plan discussed along with duration of care. CM/SW discussed patients right to make decisions in care. CM/SW work hours given. Patient lives: alone Admit/Transfer: thru ED Hospital/ER visits since last admit: 0 POA/Emergency contact: jarred Rivera [phone] Current/Previous Home Health: none PCP/Follow-up Care: Dr. Sixto Armenta - PCP ; advised pt to follow up with one of his MDs within 5-7 days of discharge. He acknowledged Current/Previous DME: none Medications (referring to index hospitalization or the first time you were in the hospital) a. Were changes made in your medications when you were in the hospital on [date of index hospitalization]? n/a b. Did you understand the changes? n/a c. Were you able to obtain your new medications right away? n/a d. Were you able to take your medications like the doctor wanted you to? n/a e. Did the hospital give you an accurate, easy to understand list of medications when you left? n/a Scale of 1-10 how comfortable does patient feel with disease management in outpatient setting: Other Services: none Employment Status: in between jobs Areas of Concerns: GI bleed, pain Referral Needs: none Education Needs: medical management IMM/MARIN given and signed (if applicable): none at this time Goal for discharge: home CM/SW left business card at the bedside with contact information. Name and number was also written on the patients whiteboard. Patient verbalized understanding of discussion. CM will follow-up with ongoing discharge and transition of care needs.
[2018-06-13] MEDS: FAMOTIDINE 20 MG/2 ML VIAL IV SCH (17:16)
--- NOTE | 2018-06-13 17:25 | NUR ---
IV LEAKING. REMOVED RIGHT HAND IV. NEW IV STARTED TO LEFT AC 20 GAUGE.
[2018-06-13] MEDS: HYDROCODONE/APAP 7.5MG-325MG 1 EA TAB PO PRN ×2 (18:27→23:09)
--- NOTE | 2018-06-13 20:00 | NUR ---
PT REFUSED BED ALARM.EDUCATION PROVIDED REGARDING SAFETY.PT STILL REFUSED BED ALARM.LABEL CUTTER PAIGE MARTINEZ NOTIFIED.
--- NOTE | 2018-06-13 21:25 | NUR ---
PT AMBULATING IN THE HALLWAY AT THIS TIME WITH FAMILY WITHOUT ANY DIFFICULTY.
[2018-06-14] VITALS (8 sets, daily range): BP systolic 121–162; BP diastolic 61–80
[2018-06-14] MEDS: HYDROCODONE/APAP 7.5MG-325MG 1 EA TAB PO PRN ×4 (03:54→21:30)
--- NOTE | 2018-06-14 07:21 | NUR ---
REPORT GIVEN TO ONCOMING NURSE.WALKING ROUNDS MADE.PT RESTING IN BED WITH NO S/S OF DISTRESS.
[2018-06-14] MEDS: BISACODYL 10 MG SUPP PR SCH (08:00)
[2018-06-14] MEDS: PANTOPRAZOLE SODIUM 40 MG SUSPDR.PKT NG SCH (09:45)
[2018-06-14] MEDS: FAMOTIDINE 20 MG/2 ML VIAL IV SCH (09:45)
[2018-06-14] MEDS: SODIUM CHLORIDE 0.9% 1000ML 1,000 ML IV SCH (15:50)
--- NOTE | 2018-06-14 16:51 | NUR ---
Follow-up Note RD Recommendation for Physician: - ADAT to goal of GI Soft diet Plan of Care: RD following, monitoring for tolerance and adequacy Nutrition reason for involvement: NPO/Liquid diet x 10 days, follow up Primary Diagnose(s): GIB, cancer of cecum PMH: CAD with CABG, HTN, diverticulosis per pt Ht: 71 in Wt: 216.13 lb; 204lb BMI: 30.1 kg/m2 IBW: [address] Assessment: (06/14) Visited pt in the room. Diet has been advanced to full liquid for lunch today. Pt tolerated full liquid and eager to advance his diet. No GI complains noted. Flatus present. No chewing or swallowing issue reported. Anticipate adequate PO intake when diet advanced to regular. Will continue to monitor and follow. (06/11) 67 YOM admitted for GIB with recent dx of cancer to the cecum. Pt is POD#1 for R hemicolectomy with NGT in place to LIWS and NPO as of yesterday. Noted 600 ml of dark NGT output at time of visit. 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 Pt reports UBW of 203#, no wt loss noted. Pt denies any N/V/C/D prior to surgery, pt complaining of post operative pain. LBM 4/8 prior to surgery. POC reviewed with pt and son. Chart reviewed. Labs and meds reviewed. Will monitor and continue to follow. Current Diet: full liquid Malnutrition Evaluation (06/11/18) The patient does not meet criteria for a specified degree of malnutrition at this time. Will re-evaluate at follow-up as appropriate. Diet Education Needs Assessment: Diet education not indicated, pt on transition diet. Nutrition Care Level: Low Signed: Claudia Perales, MS, RD, LD
[2018-06-14] MEDS ORDERED: ONDANSETRON HCL 4 MG ORAL DISINTEGRATING TAB PO PRN (18:45)
[2018-06-15] VITALS (8 sets, daily range): BP systolic 109–136; BP diastolic 65–79
[2018-06-15] MEDS: SODIUM CHLORIDE 0.9% 1000ML 1,000 ML IV SCH ×2 (03:09→19:36)
[2018-06-15] MEDS: HYDROCODONE/APAP 7.5MG-325MG 1 EA TAB PO PRN ×3 (04:17→13:51)
--- NOTE | 2018-06-15 06:30 | NUR ---
REFUSED SCD AND REQUESTED TO REMOVE FELIX HOSE.
[2018-06-15] MEDS: PANTOPRAZOLE SODIUM 40 MG SUSPDR.PKT NG SCH (09:30)
[2018-06-15] MEDS ORDERED: KETOROLAC TROMETHAMINE 30 MG/ML VIAL IV PRN (12:45)
--- NOTE | 2018-06-15 17:14 | Progress Note ---
DATE: Internal Medicine Progress Note SUBJECTIVE: Emy Rivera is a 67-year-old years old male, status post right hemicolectomy because of colon cancer. The patient is complaining of abdominal pain. OBJECTIVE: VITAL SIGNS: Blood pressure 132/75, temperature 37.5, heart rate 82 per minute, respiratory rate is 20 per minute, and oxygen saturation 95%. HEART: Showed regular rhythm. Normal S1 and S2 sound. LUNGS: Clear bilaterally. ABDOMEN: Soft. He has a vertical incision with leo, which is healing pretty well. EXTREMITIES: Show no evidence of edema. LABORATORY DATA: From the blood work, BMP shows sodium 137, potassium 4.1, chloride 104, CO2 24, BUN 7, creatinine 0.70, glucose 81. CBC; white count 9.63, hemoglobin 10.3, hematocrit 31.2, platelet count 243,000. PT 12.7, INR 0.91, and PTT 24.7. AST 17, ALT 15, total bilirubin 0.4, alkaline phosphatase 66. FINAL IMPRESSION: 1. Colon cancer, status post right hemicolectomy. 2. Coronary artery disease, status post stent placement. 3. Hypertension. 4. Acute anemia. 5. Abdominal pain. 6. Gastroesophageal reflux disease. PLAN OF TREATMENT: Continue diet as tolerated. Sodium chloride 50 mL/hour, naloxone 0.4 mg IV as needed for excessive sedation. Continue hydralazine 10 mg q.4 hours as needed IV for hypertension. Continue metoprolol 2.5 mg IV q.3 hours as needed, Dilaudid 0.5 mg q.3 hours as needed, Zofran 4 mg IV q.4 hours as needed, Protonix 40 mg daily, Toradol 30 mg q.6 hours as needed, and Tylenol with codeine one tablet q.4 hours as needed. MD KELLY Moon/JASE /[id number]
[2018-06-15] MEDS ORDERED: CHLORPROMAZINE HCL 25 MG TAB PO PRN ×2 (18:15→23:15)
[2018-06-16] VITALS: BP 140/82
[2018-06-16] MEDS: HYDROCODONE/APAP 7.5MG-325MG 1 EA TAB PO PRN ×2 (00:04→09:58)
--- NOTE | 2018-06-16 07:20 | NUR ---
BEDSIDE ROUNDS COMPLETE NO DISTRESS NOTED, UPDATED ON POC VOICED UNDERSTANDING, ADRIEL TO ABDOMEN C/D/I, IVF INFUSING TO L AC 20G NO SS OF INFILTRATION NOTED, NO OTHER CO VOCIED CALL LIGHT IN REACH WILL CONTINUE OT MONITOR
[2018-06-16 07:29] VITALS: BP 127/61
[2018-06-16] MEDS: PANTOPRAZOLE SODIUM 40 MG SUSPDR.PKT NG SCH (09:00)
[2018-06-16 09:30] VITALS: BP 127/61
--- NOTE | 2018-06-16 18:13 | Discharge Summary ---
HOSPITAL COURSE: The patient is a 67-year-old male, who had a past medical history positive for coronary artery disease, hypertension, hypothyroidism, admitted to the emergency room with black stools. He was diagnosed with a gastrointestinal bleed. He was diagnosed with cancer of the colon. He underwent right colectomy. The patient doing well, going home today. He has been discharged by Dr. Narinder Moon. PHYSICAL EXAMINATION: VITAL SIGNS: Blood pressure 127/61, temperature 96.3, heart rate 66 per minute, respiratory rate 18 per minute, oxygen saturation 92%. HEART: Showed regular rhythm. Normal S1, S2 sound. LUNGS: Clear bilaterally. ABDOMEN: Soft. LABORATORY DATA: BMP; sodium 137, potassium 4.1, chloride 104, CO2 24, BUN 7, creatinine 0.70, glucose 181. On the CBC, white blood count 9.63, hemoglobin 10.3, hematocrit 31.2, platelet count 243,000. PT 12.7, INR 0.91, PTT 24.7. AST 17, ALT 15, total bilirubin 0.4, alkaline phosphatase 66. FINAL IMPRESSION: 1. Right colon cancer status post right hemicolectomy. 2. Anemia which is acute. 3. Coronary artery disease, status post coronary artery stenting. 4. Hypertension. PLAN OF TREATMENT: He is going to be discharged on metoprolol. He is going to be discharged on Protonix. Continue home medications. Dr. Moon wrote a prescription also for the patient for him to go home. Follow up with Dr. Moon in a week. MD KELLY Moon/JASE /[id number]
== END 2018-06-16 13:40 | disposition home or self-care (01) | DRG 329 ==
LOC: ER 16:38 → ERHOLD 20:41 → MED/SURG3 21:19 → MED/SURG 06-10 16:36
PROC: 30233N1 Transfusion of Nonautologous Red Blood Cells into Peripheral Vein, Percutaneous Approach (ICD-10-PCS; 2018-06-04)
PROC: 0DB68ZX Excision of Stomach, Via Natural or Artificial Opening Endoscopic, Diagnostic (ICD-10-PCS; principal; 2018-06-05 15:17)
PROC: 0DBK8ZX Excision of Ascending Colon, Via Natural or Artificial Opening Endoscopic, Diagnostic (ICD-10-PCS; 2018-06-06)
PROC: 0DBP8ZX Excision of Rectum, Via Natural or Artificial Opening Endoscopic, Diagnostic (ICD-10-PCS; 2018-06-06)
PROC: 0DBH8ZX Excision of Cecum, Via Natural or Artificial Opening Endoscopic, Diagnostic (ICD-10-PCS; 2018-06-06)
PROC: 0DTF0ZZ Resection of Right Large Intestine, Open Approach (ICD-10-PCS; 2018-06-10)
DX: C18.0 Malignant neoplasm of cecum (principal); K57.31 Diverticulosis of large intestine without perforation or abscess with bleeding; D62 Acute posthemorrhagic anemia; I10 Essential (primary) hypertension; Z95.5 Presence of coronary angioplasty implant and graft; Z87.891 Personal history of nicotine dependence; Z82.49 Family history of ischemic heart disease and other diseases of the circulatory system; I25.10 Atherosclerotic heart disease of native coronary artery without angina pectoris; K20.9 Esophagitis, unspecified; K44.9 Diaphragmatic hernia without obstruction or gangrene; K29.70 Gastritis, unspecified, without bleeding; K64.8 Other hemorrhoids; K21.9 Gastro-esophageal reflux disease without esophagitis; E03.9 Hypothyroidism, unspecified
CPT/HCPCS: 36415; 43239; 45380; 45385; 74177; 80048; 80053; 81001; 82270; 83735; 85014; 85018; 85025; 85610; 85730; 86850; 86900; 86920; 88305; 88307; 88309; 88312; 88331; 88342; 93005; 93306; 96361; 99284; J0360; J0694; J1885; J1940; J1980; J2001; J2250; J2270; J2405; J7030; J7050; P9016; Q9967

== ENCOUNTER → 2019-08-21 | Day surgery (SDC) | payer MEDICARE, OTHER ==
[2019-08-18 11:09] LABS: BASOPHILS % 0.7 % (0.0-1.0); EOSINOPHILS # (AUTO) 0.1 (0.0-0.4); EOSINOPHILS % 2.1 % (0.0-6.0); HEMATOCRIT 40.6 % (38.2-49.6); HEMOGLOBIN 13.5 g/dL (14.0-18.0); LYMPHOCYTES # (AUTO) 0.7 (1.0-3.2); LYMPHOCYTES % 12.7 % (18.0-39.1); MEAN CORPUSCULAR HEMOGLOBIN 30.2 pg (28-32); MEAN CORPUSCULAR HGB CONC 33.3 g/dL (31-35); MEAN CORPUSCULAR VOLUME 90.8 fL (81-99); MONOCYTES # (AUTO) 0.6 (0.2-0.8); MONOCYTES % 10.4 % (4.4-11.3); NEUTROPHILS # (AUTO) 4.2 (2.1-6.9); NEUTROPHILS % 73.6 % (38.7-80.0); PLATELET COUNT 203 x10e3/uL (140-360); RED BLOOD COUNT 4.47 x10e6/uL (4.3-5.7); RED CELL DISTRIBUTION WIDTH 12.6 % (11.7-14.4)
[~2019-08-21] MED LIST changes: +FENTANYL CITRATE/PF 100MCG/2 ML INJ ONE; +GUMMI BEAR MUL1 EACH PO; +HYOSCYAMINE 0.125 MG TAB ONE; +LISINOPRIL5 MG PO; +MAGOX 400400 MG PO; +MELOXICAM7.5 MG PO; +MIDAZOLAM HCL 2 MG/2 ML VIAL ONE; +PROPOFOL IV EMULSION 10 MG/ML 20 ML VIAL ONE; +VITAMIN B 12 PO; +VITAMIN B12-FO1 EACH PO; +VITAMIN D1000 UNI1 PO; +VITAMIN E400 UNI1 PO; +ZINC SULFATE220 M1 PO
[2019-08-21 17:00] VITALS: BP 113/66
--- NOTE | 2019-08-21 21:16 | Operative Report ---
DATE OF PROCEDURE: 08/21/2019 SURGEON: Lasha Hernandez MD PROCEDURE: Colonoscopy with polypectomy and biopsies. INDICATIONS FOR COLONOSCOPY: Surveillance colonoscopy, status post colon resection for colon cancer. MEDICATIONS: The patient was done under MAC, please see anesthesiologist's note. PROCEDURE IN DETAIL: With the patient in the left lateral decubitus position, a flexible fiberoptic Olympus colonoscope was inserted into the rectum with ease and advanced all the way to the cecum. Surgery site was identified and it was fairly nodular and biopsies were obtained. The scope was then withdrawn slowly, mucosa overlying the ascending and transverse appeared to be within normal limits. Diverticular disease was noted to involve the distal descending and the sigmoid colon. Two polyps were hot biopsied from the sigmoid colon. The scope was then retroflexed into the distal rectum and some moderate size internal hemorrhoids were noted, none of which was actively bleeding. The scope was then straightened out, it was subsequently withdrawn, and the patient tolerated the procedure well. IMPRESSION: 1. Anastomosis intact, somewhat nodular, biopsied. 2. Diverticulosis. 3. Sigmoid colon polyps x2, hot biopsied. 4. Internal hemorrhoids, none actively bleeding. PLAN: Follow up histology. Initiate high-fiber, low-fat diet. Initiate high-fiber supplement. Timing of followup colonoscopy pending pathology report if polyps and biopsies were unremarkable, then the patient will be rechecked in 2 to 3 days. Lasha Hernandez MD [facility] [place] /[id number] cc: Sixto Armenta DO
== END | disposition home or self-care (01) ==
LOC: OR 11:26
PROVIDERS: ATTEND Internal Medicine Gastroenterology
DX: Z12.11 Encounter for screening for malignant neoplasm of colon (principal); Z85.038 Personal history of other malignant neoplasm of large intestine; D12.3 Benign neoplasm of transverse colon; Z98.0 Intestinal bypass and anastomosis status; K57.30 Diverticulosis of large intestine without perforation or abscess without bleeding; K64.8 Other hemorrhoids; K29.70 Gastritis, unspecified, without bleeding; K20.9 Esophagitis, unspecified; I25.10 Atherosclerotic heart disease of native coronary artery without angina pectoris; I25.2 Old myocardial infarction; I10 Essential (primary) hypertension; E03.9 Hypothyroidism, unspecified; Z79.02 Long term (current) use of antithrombotics/antiplatelets; Z79.82 Long term (current) use of aspirin; Z01.812 Encounter for preprocedural laboratory examination; Z11.59 Encounter for screening for other viral diseases; Z68.28 Body mass index [BMI] 28.0-28.9, adult; Z95.5 Presence of coronary angioplasty implant and graft
CPT/HCPCS: 36415; 45384; 85025; 87635; 88305; J2250; J2704; J3010; 45380